=== PATIENT | male | born 2000 | race Caucasian/White ===

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

== ENCOUNTER 2021-03-07 14:54 | Emergency (ER) | payer OTHER ==
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
[2021-03-07] MEDS ORDERED: NORCO 5/325 MG PO ONE (15:54)
[2021-03-07] MEDS ORDERED: Cyclobenzaprine 10 MG PO ONE (15:55)
[2021-03-07] MEDS ORDERED: NORCO 5/325 MG ONE (16:12)
[2021-03-07] MEDS ORDERED: Cyclobenzaprine 10 MG ONE (16:12)
[2021-03-07 16:15] VITALS: BP 116/71; O2SAT 98
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
[2021-03-07 16:59] VITALS: PULSE 92
== END 2021-03-07 16:58 | disposition home or self-care (01) ==
LOC: ED 14:54
DX: S16.1XXA Strain of muscle, fascia and tendon at neck level, initial encounter (principal); V89.2XXA Person injured in unspecified motor-vehicle accident, traffic, initial encounter; Y93.9 Activity, unspecified; Y92.89 Other specified places as the place of occurrence of the external cause; M54.2 Cervicalgia; R51.9 Headache, unspecified
CPT/HCPCS: 70450; 72100; 72125; 99284; L0172; A9270-GY

== ENCOUNTER 2021-10-18 13:37 | Emergency (ER) | payer OTHER ==
--- NOTE | 2021-10-18 13:42 | ERPHSYRPT ---
- History of Present Illness Time Seen by Provider: 10/18/21 13:42 Source: patient Exam Limitations: no limitations Physician History: This is a 21-year-old white male who has a history of asthma and anxiety and began having symptoms on October 05 of headache, cough, shortness of breath, myalgias and arthralgias. He was diagnosed 6 days ago with COVID-positive infection. Over the last several days he has not been feeling any better. He is here today with myalgias and arthralgias as well as sore throat and shortness of breath. Although, he states that his myalgias and arthralgias as well as sore throat have improved. The shortness of breath and his chest was most concerning to him. Timing/Duration: week(s) (2), worse Activities at Onset: none Severity of Dyspnea-Max: moderate Severity of Dyspnea-Current: mild (To moderate) Possible Cause: no prior episodes Modifying Factors: Improves With: activity, coughing Associated Symptoms: cough, No chest pain/discomfort Allergies/Adverse Reactions: TAPE Allergy (Uncoded 01/23/18 16:49) Home Medications: Sertraline HCl 50 mg [Zoloft 50 mg Tablet] 50 mg PO DAILY 01/23/18 [History] Cetirizine HCl [All Day Allergy] 10 mg PO DAILY 03/07/21 [History] Hx Tetanus, Diphtheria Vaccination/Date Given: Yes Hx Influenza Vaccination/Date Given: No Hx Pneumococcal Vaccination/Date Given: No Travel Risk - International Travel Have you traveled outside of the country in past 3 weeks: No - Coronavirus Screening Are you exhibiting any of the following symptoms?: Yes Symptoms: Shortness of Breath, Headaches/Body Aches/Fatigue - Vaccine Status Have you recieved a Covid-19 vaccination: No - Review of Systems Constitutional: No Symptoms Eyes: No Symptoms Ears, Nose, & Throat: No Symptoms Respiratory: Cough, Dyspnea Cardiac: No Symptoms Abdominal/Gastrointestinal: No Symptoms Genitourinary Symptoms: No Symptoms Musculoskeletal: Arthralgias, Myalgias Skin: No Symptoms Neurological: No Symptoms Psychological: No Symptoms Endocrine: No Symptoms Hematologic/Lymphatic: No Symptoms Immunological/Allergic: No Symptoms All Other Systems: Reviewed and Negative - Past Medical History Pertinent Past Medical History: Yes Neurological History: No Pertinent History ENT History: No Pertinent History Cardiac History: No Pertinent History Respiratory History: No Pertinent History Endocrine Medical History: No Pertinent History Musculoskeletal History: Other GI Medical History: No Pertinent History History: No Pertinent History Psycho-Social History: Anxiety Male Reproductive Disorders: No Pertinent History Other Medical History: SEES A NEUROLOGIST FOR SYRINX ON HIS BACK. 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 - Past Surgical History Past Surgical History: Yes Neuro Surgical History: No Pertinent History Respiratory: No Pertinent History Gastrointestinal: Appendectomy Genitourinary: No Pertinent History Musculoskeletal: Other Male Surgical History: No Pertinent History - Social History Smoking Status: Never smoker Exposure to second hand smoke: No Drug Use: none Patient Lives Alone: No - Nursing Vital Signs Nursing Vital Signs: Initial Vital Signs Temperature 98.3 F 10/18/21 13:53 Pulse Rate 86 10/18/21 13:53 Respiratory Rate 20 10/18/21 13:53 Blood Pressure 150/81 10/18/21 13:53 O2 Sat by Pulse Oximetry 98 10/18/21 13:53 Pain Scale Pain Intensity 0 - Physical Exam General Appearance: no apparent distress, alert, anxiety Eye Exam: PERRL/EOMI, eyes nml inspection Ears, Nose, Throat Exam: hearing grossly normal, pharyngeal erythema Neck Exam: normal inspection, non-tender, supple, full range of motion Respiratory Exam: normal breath sounds, lungs clear, airway intact, No chest tenderness, No respiratory distress Cardiovascular/Chest Exam: normal heart sounds, regular rate/rhythm Abdominal/Gastrointestinal Exam: soft, normal bowel sounds, No tenderness Rectal Exam: not done Extremity Exam: non-tender, normal range of motion, normal inspection, normal capillary refill, no calf tenderness, no pedal edema, pelvis stable Neurologic Exam: alert, oriented x 3, cooperative, tongue carrier II-XII nml as tested, no rmal mood/affect, nml cerebellar function, nml station & gait, sensation nml Skin Exam: normal color, warm, dry Lymphatic Exam: No adenopathy SpO2 Interpretation: normal O2 Delivery: Room Air - Course Nursing assessment & vital signs reviewed: Yes EKG Interpreted by Me: RATE (86), Sinus Rhythm, NORMAL AXIS, NORMAL INTERVALS, NORMAL QRS, NORMAL ST-T, Other (No acute ischemic changes on today's EKG. There are no comparison EKGs available) Ordered Tests: Active Orders 24 hr Category Date Time Status EKG-ER Only STAT Care 10/18/21 13:53 Active IV Insertion STAT Care 10/18/21 13:53 Active CHEST 1 VIEW (PORTABLE) Stat Exams 10/18/21 13:54 Completed CHEST WITH CONTRAST [CT] Stat Exams 10/18/21 15:50 Completed BLOOD CULTURE Stat Lab 10/18/21 14:10 Received CBC W DIFF Stat Lab 10/18/21 14:10 Completed CMP Stat Lab 10/18/21 14:10 Completed D-DIMER QUANTITATIVE Stat Lab 10/18/21 14:10 Completed INFLUENZA A+B TULIO Stat Lab 10/18/21 14:10 Completed Lactic Acid Stat Lab 10/18/21 13:53 Completed Lactic Acid Stat Lab 10/18/21 16:25 Received [place] Screen Stat Lab 10/18/21 14:10 Completed Medication Summary Generic Name Dose Route Start Last Admin Trade Name Freq PRN Reason Stop Dose Admin Sodium Chloride 1,000 mls @ 50 mls/hr 10/18/21 14:00 10/18/21 14:33 Sodium Chloride 0.9% 1000 Ml IV 11/17/21 13:59 50 mls/hr .Q20H KATHERINE Administration Discontinued Medications Generic Name Dose Route Start Last Admin Trade Name Freq PRN Reason Stop Dose Admin Hydrocodone Bitart/Acetaminophen 10 ml 10/18/21 14:05 10/18/21 14:32 Hydrocodone/Acetaminophen 5 Ml Udcup PO 10/18/21 14:06 10 ml STAT STA Administration Hydrocodone Bitart/Acetaminophen Confirm 10/18/21 14:31 Hydrocodone/Acetaminophen 5 Ml Udcup Administered 10/18/21 14:32 Dose 10 ml .ROUTE .STK-MED ONE Methylprednisolone Sodium 0 mg 10/18/21 13:53 10/18/21 14:32 Succinate 125 mg/ Sterile IV 10/18/21 13:54 125 mg Water 2 ml STAT ONE Administration Methylprednisolone Sodium Succinate Confirm 10/18/21 14:31 Methylprednis Sod Succ 125 Mg/2 Ml Vial Administered 10/18/21 14:32 Dose 125 mg .ROUTE .STK-MED ONE Sterile Water Confirm 10/18/21 14:31 Water For Injection,Sterile 10 Ml Vial Administered 10/18/21 14:32 Dose 10 ml IJ .STK-MED ONE Lab/Rad Data: Laboratory Result Diagrams 10/18/21 14:10 10/18/21 14:10 Laboratory Results 10/18/21 10/18/21 10/18/21 Range/Units 14:10 14:10 14:10 WBC 9.2 (4.0-10.5) K/mm3 RBC 5.59 (4.1-5.6) M/mm3 Hgb 17.0 (12.5-18.0) gm/dl Hct 49.3 (42-50) % MCV 88.2 (78-100) fl MCH 30.4 (26-32) pg MCHC 34.5 (32-36) g/dl RDW 13.4 (11.5-14.0) % Plt Count 285 (150-450) K/mm3 MPV 9.1 (7.5-11.0) fl Gran % 73.7 H (36.0-66.0) % Eos # (Auto) 0.10 (0-0.5) Absolute Lymphs (auto) 1.64 (1.0-4.6) Absolute Monos (auto) 0.65 (0.0-1.3) Lymphocytes % 17.9 L (24.0-44.0) % Monocytes % 7.1 (0.0-12.0) % Eosinophils % 1.1 (0.00-5.0) % Basophils % 0.2 (0.0-0.4) % Absolute Granulocytes 6.75 (1.4-6.9) Basophils # 0.02 (0-0.4) D-Dimer (215-500) ng/mL Sodium 137 (137-145) mmol/L Potassium 4.3 (3.5-5.1) mmol/L Chloride 104 (98-107) mmol/L Carbon Dioxide 25 (22-30) mmol/L Anion Gap 12.8 (5-15) MEQ/L BUN 13 (9-20) mg/dL Creatinine 0.96 (0.66-1.25) mg/dL Estimated GFR > 60.0 ML/MIN Glucose 88 (74-106) mg/dL Lactic Acid (0.4-2.0) Calcium 9.4 (8.4-10.2) mg/dL Total Bilirubin 0.90 (0.2-1.3) mg/dL AST 53 (17-59) U/L ALT 94 H (0-50) U/L Alkaline Phosphatase 67 (38-126) U/L Serum Total Protein 7.1 (6.3-8.2) g/dL Albumin 4.6 (3.5-5.0) g/dL Monoscreen NEGATIVE (Negative) Influenza Type A Ag (NEGATIVE) Influenza Type B Ag (NEGATIVE) Group A Strep Antibody (NEGATIVE) 10/18/21 10/18/21 10/18/21 Range/Units 14:10 14:10 14:10 WBC (4.0-10.5) K/mm3 RBC (4.1-5.6) M/mm3 Hgb (12.5-18.0) gm/dl Hct (42-50) % MCV (78-100) fl MCH (26-32) pg MCHC (32-36) g/dl RDW (11.5-14.0) % Plt Count (150-450) K/mm3 MPV (7.5-11.0) fl Gran % (36.0-66.0) % Eos # (Auto) (0-0.5) Absolute Lymphs (auto) (1.0-4.6) Absolute Monos (auto) (0.0-1.3) Lymphocytes % (24.0-44.0) % Monocytes % (0.0-12.0) % Eosinophils % (0.00-5.0) % Basophils % (0.0-0.4) % Absolute Granulocytes (1.4-6.9) Basophils # (0-0.4) D-Dimer 582 H* (215-500) ng/mL Sodium (137-145) mmol/L Potassium (3.5-5.1) mmol/L Chloride (98-107) mmol/L Carbon Dioxide (22-30) mmol/L Anion Gap (5-15) MEQ/L BUN (9-20) mg/dL Creatinine (0.66-1.25) mg/dL Estimated GFR ML/MIN Glucose (74-106) mg/dL Lactic Acid (0.4-2.0) Calcium (8.4-10.2) mg/dL Total Bilirubin (0.2-1.3) mg/dL AST (17-59) U/L ALT (0-50) U/L Alkaline Phosphatase (38-126) U/L Serum Total Protein (6.3-8.2) g/dL Albumin (3.5-5.0) g/dL Monoscreen (Negative) Influenza Type A Ag NEGATIVE (NEGATIVE) Influenza Type B Ag NEGATIVE (NEGATIVE) Group A Strep Antibody NOT DETECTED (NEGATIVE) 10/18/21 Range/Units 13:53 WBC (4.0-10.5) K/mm3 RBC (4.1-5.6) M/mm3 Hgb (12.5-18.0) gm/dl Hct (42-50) % MCV (78-100) fl MCH (26-32) pg MCHC (32-36) g/dl RDW (11.5-14.0) % Plt Count (150-450) K/mm3 MPV (7.5-11.0) fl Gran % (36.0-66.0) % Eos # (Auto) (0-0.5) Absolute Lymphs (auto) (1.0-4.6) Absolute Monos (auto) (0.0-1.3) Lymphocytes % (24.0-44.0) % Monocytes % (0.0-12.0) % Eosinophils % (0.00-5.0) % Basophils % (0.0-0.4) % Absolute Granulocytes (1.4-6.9) Basophils # (0-0.4) D-Dimer (215-500) ng/mL Sodium (137-145) mmol/L Potassium (3.5-5.1) mmol/L Chloride (98-107) mmol/L Carbon Dioxide (22-30) mmol/L Anion Gap (5-15) MEQ/L BUN (9-20) mg/dL Creatinine (0.66-1.25) mg/dL Estimated GFR ML/MIN Glucose (74-106) mg/dL Lactic Acid 2.2 H (0.4-2.0) Calcium (8.4-10.2) mg/dL Total Bilirubin (0.2-1.3) mg/dL AST (17-59) U/L ALT (0-50) U/L Alkaline Phosphatase (38-126) U/L Serum Total Protein (6.3-8.2) g/dL Albumin (3.5-5.0) g/dL Monoscreen (Negative) Influenza Type A Ag (NEGATIVE) Influenza Type B Ag (NEGATIVE) Group A Strep Antibody (NEGATIVE) - Progress Progress: improved, re-examined Air Movement: good Progress Note: 10/18/21 16:27 CTA of chest shows no obvious central pulmonary embolus. No acute cardiopulmonary processes. 10/18/21 16:28 Chest x-ray shows no acute cardiopulmonary process. Blood Culture(s) Obtained: Yes Antibiotics given: No Counseled pt/family regarding: lab results, diagnosis, need for follow-up, rad results - Departure Departure Disposition: Home Clinical Impression: COVID-19 virus infection Condition: Stable Critical Care Time: No Referrals: ANDRESSA BENAVIDEZ [Primary Care Provider] - Follow up/PCP as directed Additional Instructions: Drink plenty fluids. Take your medication as prescribed. Prescriptions: Hydrocodone/Acetaminophen [Hydrocodone-Acetamn 7.5-325/15] 10 ml PO Q8H PRN PRN #120 ml MDD 30 ml PRN Reason: Cough Prednisone 10 mg [Deltasone 10 mg] 10 mg PO TID #12 tablet
[2021-10-18] MEDS ORDERED: solu-MEDROL 125 MG, Sterile H2O 10 ml 2 ML IV ONE ×2 (13:53)
[2021-10-18] MEDS ORDERED: Sodium Chloride 0.9% 1000 ML 1,000 ML IV SCH (14:00)
[2021-10-18] MEDS ORDERED: HYDROCODONE-ACETAMIN 2.5-108/5 ML SOLUTION PO STA (14:05)
--- NOTE | 2021-10-18 14:21 | XRAY ---
Indication: Short of breath. Comparison: None Portable apical lordotic chest demonstrates normal heart, lungs, and bony thorax.
[2021-10-18] MEDS ORDERED: solu-MEDROL ONE (14:31)
[2021-10-18] MEDS ORDERED: Sodium Chloride 0.9% 1000 ML 1,000 ML ONE (14:31)
[2021-10-18] MEDS ORDERED: HYDROCODONE-ACETAMIN 2.5-108/5 ML SOLUTION ONE (14:31)
[2021-10-18] MEDS ORDERED: Sterile H2O 10 ml IJ ONE (14:31)
[2021-10-18 14:33] LABS: Absolute Neutrophil Ct (ANC) 6.75 (1.4-6.9); Basophil (Absolute #) 0.02 (0-0.4); Eosinophil % 1.1 % (0.00-5.0); Hematocrit 49.3 % (42-50); Lymphocyte (Absolute #) 1.64 (1.0-4.6); Lymphocytes % 17.9 % (24.0-44.0); Mean Cell Volume 88.2 fl (78-100); Mean Corpuscular Hemoglobin 30.4 pg (26-32); Mean Corpuscular Hgb Concent. 34.5 g/dl (32-36); Mean Platelet Volume 9.1 fl (7.5-11.0); Monocyte (Absolute #) 0.65 (0.0-1.3); Monocytes % 7.1 % (0.0-12.0); Neutrophil % 73.7 % (36.0-66.0); Platelet Count 285 K/mm3 (150-450); Red Blood Count 5.59 M/mm3 (4.1-5.6); Red Cell Distribution Width 13.4 % (11.5-14.0); White Blood Count 9.2 K/mm3 (4.0-10.5)
[2021-10-18 14:42] LABS: ALBUMIN 4.6 g/dL (3.5-5.0); ALKALINE PHOSPHATASE 67 U/L (38-126); ANION GAP 12.8 MEQ/L (5-15); BLOOD UREA NITROGEN 13 mg/dL (9-20); CHLORIDE 104 mmol/L (98-107); Calcium 9.4 mg/dL (8.4-10.2); Carbon Dioxide 25 mmol/L (22-30); Creatinine 1 0.96 mg/dL (0.66-1.25); EST GLOMERULAR FILTRATION RATE > 60.0 ML/MIN; Glucose 88 mg/dL (74-106); Potassium 4.3 mmol/L (3.5-5.1); SGOT/AST 53 U/L (17-59); SGPT/ALT 94 U/L (0-50); SODIUM 137 mmol/L (137-145); Total Protein 7.1 g/dL (6.3-8.2)
[2021-10-18 14:44] LABS: INFLUENZA A NEGATIVE (NEGATIVE); INFLUENZA B NEGATIVE (NEGATIVE)
--- NOTE | 2021-10-18 16:25 | XRAY ---
Indication: Short of breath. Elevated d-dimer. Positive Covid 19. Multiple contiguous axial images obtained through the chest using 100 cc Isovue 370 contrast and PE protocol. Comparison: None There is suboptimal opacification of the pulmonary arteries limiting evaluation for pulmonary embolus. No obvious central pulmonary embolus. Heart not enlarged. Aorta is normal in course and caliber. No pathologic mediastinal/hilar lymphadenopathy. Lungs are inflated and clear. Bony thorax intact. Limited upper abdomen demonstrates fatty liver. Impression: 1. Pulmonary embolus evaluation limited due to suboptimal contrast opacification. No obvious central pulmonary embolus. 2. Fatty liver. 3. Remaining CT chest with contrast exam is negative.
[2021-10-18 16:59] VITALS: BP 107/54; PULSE 89; O2SAT 98
== END 2021-10-18 17:15 | disposition home or self-care (01) ==
LOC: ED 13:37
DX: U07.1 COVID-19 (principal); M79.18 Myalgia, other site; J02.9 Acute pharyngitis, unspecified; R06.02 Shortness of breath; R05.9 Cough, unspecified; Z79.891 Long term (current) use of opiate analgesic; Z79.52 Long term (current) use of systemic steroids
CPT/HCPCS: 36000; 36415; 71045; 71260; 80053; 83605; 85025; 85379; 86308; 87040; 87400; 87651; 93005; 96374; 99284; J2930; A9270-GY

== ENCOUNTER 2023-03-14 08:42 | Emergency (ER) | payer OTHER ==
[2023-03-14 09:15] VITALS: BP 136/85; PULSE 103; O2SAT 100
--- NOTE | 2023-03-14 09:27 | ERPHSYRPT ---
- History of Present Illness Time Seen by Provider: 03/14/23 09:05 Source: patient, family (Father/coworker) Exam Limitations: no limitations Patient Subjective Stated Complaint: Pt has a rubber end to an earbud stuck in his left ear canal Triage Nursing Assessment: Pt brought to the ER by his dad, tachycardic, denies pain just discomfort, rubber object seen in left ear canal, pulses normal, skin n/w/d, doesn't appear to be in any distress Physician History: This is a 22-year-old white male patient who was brought to the emergency department by his coworker/father. The patient was using headphones and the rubber portion was dislodged off of the headphones/earbuds into the left ear canal. He could not retrieve the rubber portion. He is having mild throbbing pain left ear canal. This occurred just prior to arrival to the emergency department Timing/Duration: today Severity: mild Modifying Factors: Improves With: nothing Associated Symptoms: denies symptoms Allergies/Adverse Reactions: TAPE Allergy (Uncoded 03/14/23 09:16) Home Medications: Sertraline HCl 50 mg [Zoloft 50 mg Tablet] 50 mg PO DAILY 01/23/18 [History] Amitriptyline HCl 25 mg [Amitriptyline 25 mg Tablet] 25 mg PO DAILY 03/14/23 [History] Ergocalciferol (Vitamin D2) [Vitamin D2] 50,000 unit PO WEEKLY 03/14/23 [History] Levothyroxine Sodium 25 Mcg [Synthroid 25 Mcg] 25 mcg PO DAILY 03/14/23 [History] buPROPion HCL [Wellbutrin Xl] 300 mg PO DAILY 03/14/23 [History] Hx Tetanus, Diphtheria Vaccination/Date Given: Yes Hx Influenza Vaccination/Date Given: No Hx Pneumococcal Vaccination/Date Given: No Travel Risk - International Travel Have you traveled outside of the country in past 3 weeks: No - Coronavirus Screening Are you exhibiting any of the following symptoms?: No Close contact with a COVID-19 positive Pt in past 14-21 Days: No - Vaccine Status Have you recieved a Covid-19 vaccination: No - Review of Systems Constitutional: No Symptoms Eyes: No Symptoms Ears, Nose, & Throat: Other (Foreign body left ear canal) Respiratory: No Symptoms Cardiac: No Symptoms Abdominal/Gastrointestinal: No Symptoms Genitourinary Symptoms: No Symptoms Musculoskeletal: No Symptoms Skin: No Symptoms Neurological: No Symptoms Psychological: No Symptoms Endocrine: No Symptoms Hematologic/Lymphatic: No Symptoms Immunological/Allergic: No Symptoms All Other Systems: Reviewed and Negative - Past Medical History Pertinent Past Medical History: Yes Neurological History: No Pertinent History ENT History: No Pertinent History Cardiac History: No Pertinent History Respiratory History: No Pertinent History Endocrine Medical History: No Pertinent History Musculoskeletal History: No Pertinent History GI Medical History: No Pertinent History History: No Pertinent History Psycho-Social History: Anxiety Male Reproductive Disorders: No Pertinent History Other Medical History: SEES A NEUROLOGIST FOR SYRINX ON HIS BACK. 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 - Past Surgical History Past Surgical History: Yes Neuro Surgical History: No Pertinent History Respiratory: No Pertinent History Gastrointestinal: Appendectomy Genitourinary: No Pertinent History Musculoskeletal: Other Male Surgical History: No Pertinent History - Social History Smoking Status: Never smoker Exposure to second hand smoke: No Drug Use: none Patient Lives Alone: No - Nursing Vital Signs Nursing Vital Signs: Initial Vital Signs Temperature 98.0 F 03/14/23 09:04 Pulse Rate 103 H 03/14/23 09:04 Blood Pressure 136/85 03/14/23 09:04 O2 Sat by Pulse Oximetry 100 03/14/23 09:04 Pain Scale Pain Intensity 0 - Physical Exam General Appearance: no apparent distress, alert, anxiety Eye Exam: PERRL/EOMI Ears, Nose, Throat Exam: other (Black rubber foreign body left ear canal against the tympanic membrane.) Neck Exam: normal inspection, non-tender, supple, full range of motion Respiratory Exam: airway intact, No chest tenderness, No respiratory distress Cardiovascular Exam: regular rate/rhythm, normal heart sounds, normal peripheral pulses Gastrointestinal/Abdomen Exam: soft, normal bowel sounds, No tenderness Rectal Exam: not done Back Exam: normal inspection, normal range of motion, No CVA tenderness, No vertebral tenderness Extremity Exam: normal inspection, normal range of motion, pelvis stable Neurologic Exam: alert, oriented x 3, cooperative, recoater II-XII nml as tested, normal mood/affect, nml cerebellar function, nml station & gait, sensation nml Skin Exam: normal color, warm, dry Lymphatic Exam: No adenopathy SpO2 Interpretation: normal SpO2: 100 O2 Delivery: Room Air Procedures - Additional Procedures Progress: Procedure: Timeout performed 9:15 AM The patient's head was tilted towards the right side. I used the otoscope to evaluate the left ear canal. The tympanic membrane was completely obscured by the rubber foreign body present. Using a long, and thin alligator grasper, I was able to grasp and remove the foreign body intact. In removing the foreign body there was some abrasion of the ear canal present. I reexamined. There is no active bleeding present. The blood had come from the actual ear canal. The tympanic membrane is intact. There is no retained foreign body present in the left ear canal. - Course Nursing assessment & vital signs reviewed: Yes - Progress Progress: improved Progress Note: 03/14/23 09:27 This patient's medical issue is of low complexity. No radiographic or laboratory studies are needed. The patient tolerated the procedure well. We will send a prescription of otic antibiotic to his pharmacy. Patient will use Tylenol and ibuprofen for pain control. Counseled pt/family regarding: diagnosis Medical Desision Making - Independent Historian Additional History obtained from: Father - Diagnostic Testing Diagnostic test were ordered, analyzed, and reviewed by me: No - Risk of complications The pt has a mod risk of morbidity or mortality based on: Need for prescription drug management - Departure Departure Disposition: Home Clinical Impression: Foreign body of left middle ear Condition: Stable Critical Care Time: No Referrals: ANDRESSA BENAVIDEZ [Primary Care Provider] - Follow up/PCP as directed Additional Instructions: Use the antibiotic eardrops as prescribed. Use Tylenol and ibuprofen for pain control. Follow-up with your primary care provider for further evaluation management. Prescriptions: Jose/Baci/Poly/Hc Ear Solution* [CORTISPORIN EAR DROPS Solution 1OML] 4 drops OT TID #10 ml
== END 2023-03-14 09:42 | disposition home or self-care (01) ==
LOC: ED 08:42
DX: T16.2XXA Foreign body in left ear, initial encounter (principal); Z79.899 Other long term (current) drug therapy; Z28.310 Unvaccinated for COVID-19
CPT/HCPCS: 69200; 99281